=== PATIENT | female | born 1950 | race Caucasian/White ===

== ENCOUNTER 2020-04-12 00:18 | Inpatient (IN) | payer MEDICARE, OTHER, SELFPAY ==
[2020-04-12] VITALS (25 sets, daily range): BP systolic 109–172; BP diastolic 56–79; PULSE 69–91; RESP 16–25; TEMP 36.5–38.6; O2SAT 83–97; BMI 28.9; BMI 29.5
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
--- NOTE | 2020-04-12 00:44 | DI.CT.S_ITS ---
PROCEDURE: CT ABDOMEN PELVIS W CON INDICATIONS: b/l flank pain, started yesterday TECHNIQUE: After the administration of intravenous contrast, 5 mm thick sections acquired from the diaphragm to the symphysis. 5 mm coronal and sagittal reformats were acquired. For radiation dose reduction, the following was used: automated exposure control, adjustment of mA and/or kV according to patient size. COMPARISON: None. FINDINGS: Image quality: Excellent. ABDOMEN: Lung bases: Patchy opacities noted in the left lung base. Small filling defects noted in several bilateral lower lobe segmental pulmonary arteries. Visualized heart is normal in size. Solid organs: Liver is normal in size and enhancement. Gallbladder is within normal limits. Biliary system is non dilated. Pancreas enhances normally. Slight prominence of the proximal pancreatic duct without obstructing mass or stone. Spleen is normal in size and enhancement. No adrenal nodules. Kidneys demonstrate normal size and enhancement, without hydronephrosis. Peritoneum and bowel: Small hiatal hernia. Bowel loops demonstrate normal wall thickness and caliber. Patient is status post partial right colectomy. Scattered diverticuli noted in the left colon and sigmoid colon without evidence of diverticulitis. No free fluid or air. Nodes and vessels: No retroperitoneal or mesenteric adenopathy by size criteria. Aorta and inferior vena cava are normal in size. Scattered atherosclerotic calcifications involving the abdominal and pelvic vasculature. Miscellaneous: No ventral hernias. PELVIS: Genitourinary: Bladder wall thickness is normal. Miscellaneous: No inguinal adenopathy. Bilateral fat containing inguinal hernias. Bones: No suspicious bony lesions. No vertebral body compression fractures. Spine degenerative disc disease and facet arthropathy. Grade 1 L4-L5 degenerative spondylolisthesis. Severe bilateral hip osteoarthritis. IMPRESSION: 1. Bilateral lower lobe segmental pulmonary emboli. 2. No acute disease process involving the abdomen or pelvis. 3. No free fluid or free air. 4. No dilated loops of bowel. 5. Colonic diverticulosis without evidence of diverticulitis. Dictated by: Kendal Wakefield MD, PhD on 04/12/2020 at 7:47 Approved by: Kendal Wakefield MD, PhD on 04/12/2020 at 7:53
[2020-04-12 01:07] LABS: Bacteria Urine None Seen
[2020-04-12 01:10] LABS: Add Manual Diff / Slide Review NO; Basophils Absolute Auto 100 /uL (0-100); Basophils Percent Auto 0.8 % (0-2); Eosinophils Absolute Auto 0 /uL (0-450); Eosinophils Percent Auto 0.2 % (2-4); Hemoglobin 14.4 g/dL (12.0-16.0); Lymphocytes Absolute Auto 2500 /uL (1100-4500); Lymphocytes Percent Auto 24.8 % (25-40); Mean Corpuscular HGB Conc 35.1 % (30-36); Mean Corpuscular Hemoglobin 30.7 PG (26-34); Mean Corpuscular Volume 87.3 fL (80-100); Monocytes Absolute Auto 1100 /uL (0-900); Monocytes Percent Auto 10.4 % (3-14); Neutrophils Absolute Auto 6600 /uL (1500-7000); Neutrophils Percent Auto 63.8 % (50-75); Platelet Count 244 X10^3/uL (150-400); Red Cell Distribution Width 13.1 % (11.6-14.8); White Blood Cell Count 10.3 X10^3/uL (4.5-11.0)
[2020-04-12] MEDS: ONDANSETRON 4 MG/2 ML INJ IV (01:15)
[2020-04-12] MEDS: SODIUM CHLORIDE 0.9% 1,000 ML 1000 ML IV (01:15)
[2020-04-12] MEDS: MORPHINE 4 MG/ML INJ IV ×2 (01:15→03:08)
[2020-04-12 01:16] LABS: Alanine Aminotransferase 63 IU/L (<35); Albumin 4.2 g/dL (3.5-5.0); Albumin Globulin Ratio 1.2 (1.0-2.8); Alkaline Phosphatase 92 U/L (38-126); BUN Creatinine Ratio 22.2 (6-22); Bilirubin Total 0.7 mg/dL (0.2-1.3); Blood Urea Nitrogen 14 mg/dL (7-17); Calcium 9.4 mg/dL (8.4-10.2); Carbon Dioxide 27 mmol/L (22-32); Chloride 104 mmol/L (98-107); Estimated Glomerular Filt Rate > 60.0 mL/min (>60); Globulin 3.6 g/dL (1.7-4.1); Glucose 113 mg/dL (80-110); Lipase 59 U/L (23-300); Potassium 4.4 mmol/L (3.4-5.1); Sodium 134 mmol/L (137-145); Total Protein 7.8 g/dL (6.3-8.2)
[2020-04-12 01:21] LABS: RBC Urine 1-5/HPF (0-5/HPF); WBC Urine 0-1/HPF (0-5/HPF)
[2020-04-12 01:22] LABS: Culture Indicated Urine Cult Not Indicated
[2020-04-12 01:27] LABS: HEMOLYSIS 84 (0-50)
[2020-04-12 01:41] LABS: Aspartate Aminotransferase 48 IU/L (14-36)
[2020-04-12 01:44] LABS: Creatine Kinase 38 U/L (30-135)
[2020-04-12 01:56] LABS: Troponin I < 0.012 ng/mL (0.01-0.034)
--- NOTE | 2020-04-12 02:58 | DI.US.S_ITS ---
PROCEDURE: US PERIPH VENOUS LOW EXTREM BI INDICATIONS: bilateral PE TECHNIQUE: Real-time imaging, as well as color and pulse Doppler interrogation, were performed of the deep veins of both legs from the inguinal ligament to the popliteal fossa. COMPARISON: None. FINDINGS: Right: The common femoral, femoral and popliteal veins are normally compressible, and free of intraluminal thrombus. Color and pulse Doppler demonstrate normal phasic intravascular flow. There is normal augmentation response to distal compression maneuver. Left: The common femoral, femoral and popliteal veins are normally compressible, and free of intraluminal thrombus. Color and pulse Doppler demonstrate normal phasic intravascular flow. There is normal augmentation response to distal compression maneuver. IMPRESSION: No evidence of deep vein thrombosis involving either the right or left lower extremities. Dictated by: Kendal Wakefield MD, PhD on 04/12/2020 at 6:32 Approved by: Kendal Wakefield MD, PhD on 04/12/2020 at 6:32
[2020-04-12] MEDS: HEPARIN 5,000 UNIT/ML VIAL 5600 UNIT IV (03:02)
[2020-04-12] MEDS: HEPARIN DRIP 25,000 UNIT/500 ML IV.SOLN 20 UNIT IV (03:03)
--- NOTE | 2020-04-12 03:22 | DI.CT.S_ITS ---
PROCEDURE: CT ANGIO CHEST PE PROTOCOL INDICATIONS: bilateral pe's lower on abd, ? saddle? TECHNIQUE: After the administration of intravenous contrast, 2 mm thick sections acquired from the pulmonary apices to the posterior costophrenic angles. 3-dimensional maximum intensity projection (MIP) coronal and sagittal reformats were then acquired through the thorax. For radiation dose reduction, the following was used: automated exposure control, adjustment of mA and/or kV according to patient size. COMPARISON: None. FINDINGS: Image quality: Excellent. Pulmonary arteries: Multiple filling defects noted in the right upper and bilateral lower lobar, segmental and subsegmental pulmonary arteries. Lungs and pleura: Patchy consolidation in the left lung base. Atelectasis versus parenchymal scarring noted in the right lung base. Trace left-sided pleural effusion. No pneumothorax. Central and peripheral airways are patent. Mediastinum: Heart size is normal, without pericardial effusion. Heart RV/LV ratio is normal. No mediastinal or hilar adenopathy. Thoracic aorta is normal in caliber and enhancement. Esophagus is normal in caliber. Small hiatal hernia. Bones and chest wall: No suspicious bony lesions. Ribs and thoracic spine appear intact throughout. Thyroid gland contains a 1.6 centimeter nodule in the left lobe and a 1.1 centimeter nodule in the posterior aspect of the right lobe. No axillary or supraclavicular adenopathy. Abdomen: Visualized upper abdominal solid organs appear normal in the early arterial phase of enhancement. IMPRESSION: 1. Abnormal study demonstrating bilateral pulmonary emboli. 2. Patchy consolidation left lung base which could represent pulmonary infarct, aspiration or pneumonia. 3. Trace left-sided pleural effusion. 4. Thyroid nodules. Recommend thyroid ultrasound for definitive characterization when clinically feasible. Dictated by: Kendal Wakefield MD, PhD on 04/12/2020 at 7:53 Approved by: Kendal Wakefield MD, PhD on 04/12/2020 at 7:58
[2020-04-12 04:10] LABS: COVID19 -Nasal RAPID Negative (Negative)
[2020-04-12] MEDS: HYDROMORPHONE 1 MG INJ IV (05:09)
[2020-04-12] MEDS: SODIUM CHLORIDE 0.9% 1,000 ML 250 ML IV (05:09)
--- NOTE | 2020-04-12 05:16 | PC.NURSE ---
after dilaudid administration pts O2 status dropped to 86% and steady with slow deep breaths. Placed on 2L NC and now back at 96%
[2020-04-12 06:01] LABS: PTT Partial Thromboplastin Tim 29 SECONDS (26.4-36.2)
--- NOTE | 2020-04-12 06:31 | DI.ECHO.S_ITS ---
[facility] +---------+ : : [address] : : : : [id number] : : : : Phone: [phone] Echocardiogram Report + + :Name: YASMANY KIRK Study Date: 04/12/2020 Height: 61 in : :[facility] ReadingLocation: Weight: 153 lb : : Gender: Female BSA: 1.7 m2 : :: 1950 Age: 69 yrs BP: 152/67 mmHg: :Reason For Study: PULMONARY EMBOLISM, BUBBLE STUDY : :Ordering Physician: TRINITY JIANG : :[employer] Performed By: Maria M Trevino : :Referring: TRINITY JIANG : + + Interpretation Summary 1) Normal left ventricular thickness, size, wall motion, and systolic function (EF 60-65%). 2) Normal right ventricular size and function. 3) No significant valvular abnormalities. 4) Injection of contrast documented no interatrial shunt. 5) Pulmonary artery pressures cannot be estimated because of the lack of a measurable TR jet velocity but the IVC suggests a CVP of around 8 mmHg. 6) No prior Echo available for comparison. Procedure: A two-dimensional transthoracic echocardiogram with color flow and Doppler was performed. The study quality was technically adequate. There is no prior echocardiogram noted for this patient. A saline contrast injection was performed to assess for cardiac shunting. The injection was performed through an intravenous line in the left arm. The patient was in sinus rhythm with heart rates between 73-88 bpm during the exam. Left Ventricle: The left ventricle is normal in size and wall thickness. The ejection fraction is estimated to be 60-65%. Diastolic parameters suggest probable normal left ventricular diastolic function and normal filling pressures. Right Ventricle: The right ventricle is normal in size and function. Atria: Both atria are normal in size. There is no Doppler evidence for an interatrial shunt. Injection of contrast documented no interatrial shunt. Mitral Valve: The mitral valve is normal in structure and function. There is trace mitral regurgitation. Aortic Valve: The aortic valve opens well. There is mild aortic valve sclerosis. There is no aortic valve stenosis. No aortic regurgitation is present. Tricuspid Valve: The tricuspid valve is normal in structure and function. There is trace tricuspid regurgitation. Pulmonary artery pressures cannot be estimated because of the lack of a measurable TR jet velocity but the IVC suggests a CVP of around 8 mmHg. Pulmonic Valve: The pulmonic valve leaflets are thin and pliable; valve motion is normal. There is no pulmonic valvular regurgitation. Great Vessels: The aortic root is normal size. The dimensions of the ascending aorta are normal. The IVC is of normal diameter and collapses less than 50% with a sniff. This suggests a right atrial pressure of 8 mm Hg. Pericardium/ Pleura There is no pericardial effusion. There is no pleural effusion. MMode/2D Measurements & Calculations LVIDd: 4.7 cm LVOT diam: 1.9 cm LVIDs: 2.9 cm Ao root diam: 2.5 cm FS: 39.0 % asc Aorta Diam: 3.0 cm EPSS: 0.78 cm Ao Arch Diam (Prox Trans): 2.7 cm IVSd: 0.93 cm LVPWd: 0.86 cm LV sage. diameter/BSA (cm/m^2): 2.8 LV sys. diameter/BSA (cm/m^2): 1.7 LA A2 area: 14.8 cm2 RA long axis: 4.8 cm LA A4 area: 15.8 cm2 RA area: 16.2 cm2 LA length (vol): 4.7 cm RA vol: 46.5 ml LA vol: 42.5 ml RA : 27.6 ml/m2 LA vol index: 25.2 ml/m2 RVD1 (basal): 3.0 cm TAPSE: 2.2 cm Doppler Measurements & Calculations Ao V2 max: 197.4 cm/sec LVOT Max Jeff: 141.2 cm/sec Ao V2 mean: 138.8 cm/sec LV V1 max P.0 mmHg Ao max P.6 mmHg LV V1 VTI: 24.5 cm Ao mean P.7 mmHg KEI(I,D): 2.0 cm2 Ao V2 VTI: 33.9 cm KEI(V,D): 2.0 cm2 sev ratio: 0.72 KEI indexed to BSA (cm^2/m^2): 1.2 MV E max jeff: 90.9 cm/sec PA V2 max: 78.6 cm/sec MV A max jeff: 111.1 cm/sec PA V2 mean: 56.2 cm/sec MV E/A: 0.82 PA mean P.4 mmHg Med Peak E' Jeff: 7.5 cm/sec PA pr(Accel): 49.9 mmHg E/E' med: 12.0 Lat Peak E' Jeff: 9.1 cm/sec E/E' lat: 10.0 E/e' average: 11.0 MV dec time: 0.15 sec SV(OT): 68.5 ml Reading Physician:01:48 PM
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
[2020-04-12 07:18] LABS: NT-proBNP (BNP-Adult 18+) 56 pg/mL (<125)
--- NOTE | 2020-04-12 07:18 | PC.ADMIT ---
1058 [facility] Admission Note: Patient arrived to ICU via stretcher. Strict bedrest - patient moved to bed via slider board. A/O X 3 in NAD. VSS, afebrile. Tele SR 70's. Sp02 96% 2LNC. Denies pain. Reports SOB with exertion and deep inspiration. Heparin GTT continued per protocol at initiated rate of 20 mL/hour (1000 units/hour). Next PTT at 0900. Oriented to room, call light and plan of care. Verbalized understanding. Significant other, Ana Cristina Uribe at bedside. The patient,Judit Cuevas,69 y/o, was given written information regarding hospital policies, unit procedures and contact persons. Patient's smoking status: Former smoker. Vital Signs - 8 hr 04/12/20 00:25 04/12/20 01:43 04/12/20 02:52 Temperature 99.1 F Pulse Rate 77 85 Respiratory Rate 17 Blood Pressure 150/64 H 154/74 H Pulse Oximetry 94 93 94 04/12/20 05:04 04/12/20 05:10 04/12/20 05:13 Temperature Pulse Rate 91 H Respiratory Rate 20 Blood Pressure 172/79 H Pulse Oximetry 91 86 L 96 04/12/20 05:30 04/12/20 06:00 04/12/20 06:53 Temperature 98.7 F Pulse Rate 75 72 79 Respiratory Rate 22 20 25 H Blood Pressure 143/79 H 153/69 H 151/72 H Pulse Oximetry 95 97 96
--- NOTE | 2020-04-12 08:42 | RT ---
Pt on O2 @ 2lpm nc, no distress noted.
[2020-04-12 09:04] LABS: PTT Partial Thromboplastin Tim 81 SECONDS (26.4-36.2)
[2020-04-12 09:15] LABS: Troponin I 0.035 ng/mL (0.01-0.034)
[2020-04-12] MEDS: OXYCODONE IR 5 MG TABLET PO ×4 (10:56→22:24)
[2020-04-12] MEDS: ACETAMINOPHEN 325 MG TABLET 650 MG PO ×2 (10:56→17:16)
--- NOTE | 2020-04-12 13:20 | CM.DANOTE ---
Patient is a 69 year old female who was admitted on 04/12/20 today for SOB/Cough. Pt has MCR and REG UNIFORM for insurance and her PCP is [facility] Andrade and Vascular Surgeon is Dr. Castillo. EMR was reviewed. Per MD, pt with n/v and cough and had first COVID vaccine recently and CT found bilateral PE's. Pt admitted to ICU and placed on Hep drip and pt has a hx of DVT but no current DVT found. Per MD, pt seems to be stabilizing but still fairly hypoxic and requiring NC Oxygen and will likely have RT assess pt to r/o home oxygen needs closer to d/c which could likely be tomorrow if pt remains stable. SW met bedside with pt and explained role and she confirms that she lives on [place] with her life partner Ana Cristina connected to Ana Cristina's son and DIL. Pt is retired from being a licensed CD counselor/MH counselor and is independent at baseline and does not use DME and still drives successfully. Pt originally is from the [facility] and most of her family remains that direction. Pt confirms that her LP Ana Cristina is currently staying here in [place] where her adult Dtr lives attempting to get some sleep after a long stressful night getting off [place] to [facility]. Pt confirms that she does not have home oxygen at baseline and SW discussed the process of RT assessing her closer to d/c to r/o any home oxygen needs and if needed RT can help to set up for discharge. Pt confirms that she is very exhausted and still has some pain from bilateral PE's but preference is home tomorrow if she is stable and that Ana Cristina will remain in town and available for transport when stable for discharge. Pt does not anticipate any needs at d/c. Plan: SW to follow closely tomorrow towards determining if pt is medically stable for d/c home via Life partner POV and RT to assess for possible home oxygen. SW to follow for any further identified discharge planning needs. TASHIA Cho Discharge Planning/Care Management Advanced directive, confirm from FAMILY Start: 04/12/20 06:56 Freq: Q24H Status: Active Protocol: Document 04/12/20 06:56 HNB (Rec: 04/12/20 07:10 HNB [id number]) Advance Directive, confirm on record Time 07:10 Person contacted Ana Cristina Uribe Copy received No CM Discharge Assessment Start: 04/12/20 13:18 Freq: Status: Active Protocol: Document 04/12/20 13:18 BF (Rec: 04/12/20 13:20 BF [id number]) Discharge Planning Assessment Assigned Forming Operator TASHIA Singer Advance Directives? Yes Advance Directives on File No History Provided By Patient,Medical Record Has Patient been admitted in last 30 No days? Prior Living Arrangements House Household Members significant other,family Type of transporation used prior to Drives own vehicle admit Independent with ADL's Yes Is patient alert and oriented? Yes Caregiver for Another No Barriers to Discharge No Discharge Plan Home Community Services Oxygen Therapy Transportation Arrangement Life partner available to provide transport home when stable Referrals Initiated None needed Additional Comment RT to rule out home oxygen needs Whiteboard Updated in Patient Room with Yes name and ext. # of Forming Operator Review Status In Process Please Provide Date Initial DC 04/12/20 Assessment Was Performed Next Review Type Continued Stay Review
[2020-04-12 14:37] LABS: PTT Partial Thromboplastin Tim 54 SECONDS (26.4-36.2)
[2020-04-12 14:50] LABS: Troponin I 0.027 ng/mL (0.01-0.034)
[2020-04-12] MEDS: HEPARIN 5,000 UNIT/ML VIAL 2000 UNIT IV (15:09)
[2020-04-12] MEDS: CEFTRIAXONE 1 GM/50 ML FROZ.PIGGY IV (19:37)
[2020-04-12] MEDS: AZITHROMYCIN 500 MG in DEXTROSE 5% IN WATER 250 ML IV (20:06)
[2020-04-12] MEDS: APIXABAN 5 MG TABLET 10 MG PO (20:32)
--- NOTE | 2020-04-12 21:18 | PC.NURSE ---
Pt alert and oriented x4, denies pain but has some shortness of breath with activity. Heparin IV Dc'd 1 hr after Apixiban dose. VSS. continues on bedrest.
[2020-04-12 21:42] LABS: PTT Partial Thromboplastin Tim 120 SECONDS (26.4-36.2)
--- NOTE | 2020-04-12 22:40 | PC.NURSE ---
Posterior chest pain reported, Oxycodone given as ordered, O2 Sats decreased to 88% with c/o pain, O2 per NC increased to 4L to maintain sats at 92 -93%.
[2020-04-13] VITALS (10 sets, daily range): BP systolic 103–121; BP diastolic 54–81; PULSE 63–90; RESP 16–28; TEMP 36.4–37.4; O2SAT 87–95
[2020-04-13 05:04] LABS: Add Manual Diff / Slide Review NO; Basophils Absolute Auto 100 /uL (0-100); Basophils Percent Auto 0.6 % (0-2); Eosinophils Absolute Auto 100 /uL (0-450); Eosinophils Percent Auto 0.6 % (2-4); Hematocrit 35.2 % (36-46); Hemoglobin 12.1 g/dL (12.0-16.0); Lymphocytes Absolute Auto 1900 /uL (1100-4500); Lymphocytes Percent Auto 18.4 % (25-40); Mean Corpuscular HGB Conc 34.3 % (30-36); Mean Corpuscular Hemoglobin 30.3 PG (26-34); Mean Corpuscular Volume 88.4 fL (80-100); Monocytes Absolute Auto 1000 /uL (0-900); Monocytes Percent Auto 10.2 % (3-14); Neutrophils Absolute Auto 7100 /uL (1500-7000); Neutrophils Percent Auto 70.2 % (50-75); Platelet Count 202 X10^3/uL (150-400); Red Blood Cell Count 3.98 X10^6/uL (4.0-5.2); White Blood Cell Count 10.1 X10^3/uL (4.5-11.0)
[2020-04-13 05:12] LABS: INR 1.8 (0.9-1.3); Prothrombin Time 20.5 SECONDS (10.1-12.7)
[2020-04-13 05:15] LABS: BUN Creatinine Ratio 18.9 (6-22); Blood Urea Nitrogen 14 mg/dL (7-17); Calcium 8.5 mg/dL (8.4-10.2); Carbon Dioxide 28 mmol/L (22-32); Chloride 101 mmol/L (98-107); Estimated Glomerular Filt Rate > 60.0 mL/min (>60); Glucose 135 mg/dL (80-110); HEMOLYSIS < 15 (0-50); Magnesium 2.1 mg/dL (1.6-2.3); PTT Partial Thromboplastin Tim 33 SECONDS (26.4-36.2); Potassium 4.1 mmol/L (3.4-5.1); Sodium 131 mmol/L (137-145)
--- NOTE | 2020-04-13 06:23 | PC.NURSE ---
Senior [employer] Developer Note-Patient slept with 4L NC, SpO2 89-95%, RR 20s, mild shortness of breath with exertion. She was slightly impulsive and restless while using the bedpan, some difficulty with hesitancy, obtained order from IMMUNOCHEMIST she can get out of bed to BSC and ambulate with assist.
[2020-04-13] MEDS: ACETAMINOPHEN 325 MG TABLET 650 MG PO ×2 (06:57→23:34)
[2020-04-13] MEDS: SODIUM CHLORIDE 0.9% FLUSH 10 ML IV ×3 (08:23→20:59)
[2020-04-13] MEDS: APIXABAN 5 MG TABLET 10 MG PO ×2 (08:23→20:17)
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
--- NOTE | 2020-04-13 15:26 | CM.DPNOTE ---
DCP/continued: Reviewed chart. Patient remains in acute care with bilateral PE's. Patient currently requiring 02. Per provider in AM rounds patient will remain hospitalized today. Provider hopeful that patient will discharge tomorrow. Met with patient and partner/Ana Cristina explained role. Current plan is for patient to d/c home with supportive partner when medically stable. Unknown at this time if home 02 will be needed? Patient I in ADL's and resides on [place] [address]. Patient and Ana Cristina have medical questions pertaining to treatment. Ana Cristina was not at [facility] when provider rounded today. WOOD TYPE FINISHER spoke with Dr. Mcgregor and he is in agreement to meet with patient while partner present to answer any questions. P: Anticipate home when medically stable. Patient will need priority boarding pass for return sailing to [place]. TASHIA [place]
[2020-04-13] MEDS: CLOPIDOGREL 75 MG TABLET PO (15:30)
[2020-04-13] MEDS: CEFTRIAXONE 1 GM/50 ML FROZ.PIGGY IV (19:04)
[2020-04-13] MEDS: AZITHROMYCIN 500 MG in DEXTROSE 5% IN WATER 250 ML IV (19:34)
[2020-04-13] MEDS: MAG HYDROX/ALUM/SIMETH 30 ML UDC PO (19:40)
[2020-04-13] MEDS: FAMOTIDINE 20 MG TABLET PO (19:40)
[2020-04-13] MEDS: MELATONIN 3 MG TABLET 6 MG PO (20:17)
[2020-04-14] VITALS (8 sets, daily range): BP systolic 125–141; BP diastolic 58–71; PULSE 65–73; RESP 17–20; TEMP 36.4–36.8; O2SAT 93–96
[2020-04-14] MEDS: CLOPIDOGREL 75 MG TABLET PO (10:02)
[2020-04-14] MEDS: APIXABAN 5 MG TABLET 10 MG PO (10:02)
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
--- NOTE | 2020-04-14 13:16 | PC.NURSE ---
Discharge: Pt feels ready to d/c home. She has remained off O2. Eval by RT completed and even with walking in hallways sats were mid 90's to 96%. At rest sats were 92-93%. Denies sob. Reviewed d/c packet. Rx has been esent and she is aware and shown on her paperwork. Given priority load pass. Questions answered. Pt d/c home via auto w/friend.
== END 2020-04-14 13:00 | disposition home or self-care (01) | DRG 175 ==
LOC: ED 05:27 → AC 05:38 → ICU 06:33
PROVIDERS: Admitting Provider Nurse Practitioner Family; Emergency Provider Emergency Medicine; PCP Family Medicine; Referring Provider Emergency Medicine; Visit Provider Nurse Practitioner Family
DX: I26.94 Multiple subsegmental thrombotic pulmonary emboli without acute cor pulmonale (principal); J96.01 Acute respiratory failure with hypoxia; J18.9 Pneumonia, unspecified organism; R03.0 Elevated blood-pressure reading, without diagnosis of hypertension; Z95.828 Presence of other vascular implants and grafts; Z86.718 Personal history of other venous thrombosis and embolism; Z20.822 Contact with and (suspected) exposure to COVID-19
CPT/HCPCS: 36415; 36592; 71275; 74177; 80048; 80053; 81003; 81015; 82550; 83690; 83735; 83880; 84484; 85025; 85610; 85730; 87635; 87797; 93005; 93010; 93306; 93970; 94618; 94762; 96361; 96365; 96366; 96375; 96376; 99285; C9803; A9270; J1170; J1644; J2270; J2405; Q9967